=== PATIENT | male | born 1975 | race Caucasian/White ===

== ENCOUNTER 2022-11-14 13:01 | Emergency (ER) | payer SELFPAY | END 2022-11-14 13:30 | disposition home or self-care (01) | LOC: ER 13:07 | DX: T50.901A Poisoning by unspecified drugs, medicaments and biological substances, accidental (unintentional), initial encounter (principal); Y92.89 Other specified places as the place of occurrence of the external cause; Z89.622 Acquired absence of left hip joint ==